=== PATIENT | male | born 1980 | race Caucasian/White ===

== ENCOUNTER 2017-12-23 04:50 | Emergency (ER) | payer OTHER ==
[~2017-12-23] VITALS: Ht 185.4 cm; Wt 82.3 kg
[~2017-12-23 04:50] MED LIST: ALBU0.0912 IH
[2017-12-23 04:57] VITALS: BP 119/72
--- NOTE | 2017-12-23 05:03 | NUR ---
37/M CAME IN W C/O 09/07 RECTAL PAIN X 2 DAYS AGO. REPORTS HX HEMORRHOIDS, DENIES BLEEDING AT THIS TIME. PT REPORTS CONSTIPATION. BS ACTIVE X 4, ABD SOFT, ROUND, -TENDERNESS.
--- NOTE | 2017-12-23 05:03 | NUR ---
TO ER BED 11
[2017-12-23] MEDS ORDERED: SIMV5TAB1 PO (05:11)
[2017-12-23] MEDS ORDERED: LISI2.5T12 PO (05:11)
[2017-12-23] MEDS ORDERED: LORA10TA19 PO (05:11)
[2017-12-23] MEDS ORDERED: BECL0.0815 INH (05:11)
[2017-12-23] MEDS ORDERED: NAPR-54 PO (05:11)
[2017-12-23] MEDS ORDERED: TRAZ-286 PO (05:11)
--- NOTE | 2017-12-23 05:14 | NUR ---
Patient discharged with v/s stable. Written and verbal after care instructions given and explained. Patient alert, oriented and verbalized understanding of instructions. Ambulatory with steady gait. All questions addressed prior to discharge. ID band removed. Patient advised to follow up with PMD. Rx of HYDROCORTISONE ACETATE AND NAPROXEN given. Patient educated on indication of medication including possible reaction and side effects. Opportunity to ask questions provided and answered.
[2017-12-23 05:25] VITALS: BP 120/68
== END 2017-12-23 05:14 | disposition home or self-care (01) ==
LOC: MED 04:50
DX: K64.8 Other hemorrhoids (principal); J45.909 Unspecified asthma, uncomplicated; Z79.899 Other long term (current) drug therapy; Z88.8 Allergy status to other drugs, medicaments and biological substances; Z91.018 Allergy to other foods
CPT/HCPCS: 99282